=== PATIENT | male | born 1980 ===

== ENCOUNTER 2017-05-18 03:27 | Inpatient (IN) | payer MEDICAID, OTHER ==
[2017-05-18] MEDS ORDERED: HYDROmorphone 1 mg/ml ISec IVP STA ×2 (03:52→04:49)
--- NOTE | 2017-05-18 03:52 | ED PDOC ---
Arrival/HPI - General Chief Complaint: Abdominal Pain Time Seen by Provider: 05/18/17 03:39 Historian: Patient - History of Present Illness Narrative History of Present Illness (Text): 05/18/17 03:51 Nabeel Pollack is a 36 year old male, whose past medical history includes pancreatitis, who presents to the emergency department complaining of abdominal pain. Patient reports he has been experiencing epigastric pain since earlier tonight after eating at a [employer] buffet. Patient states pain is consistent with previous episodes of pancreatitis. Patient denies any fever, chills, chest pain, shortness of breath, nausea, vomiting, diarrhea, urinary symptoms, back pain, neck pain, headache, dizziness, or any other complaints. Time/Duration: Other (tonight) Symptom Onset: Gradual Symptom Course: Unchanged Activities at Onset: Eating Context: Home Past Medical History - Provider Review Nursing Documentation Reviewed: Yes - Travel History If Yes, travel location?: [facility] - Infectious Disease Hx of Infectious Diseases: None - Gastrointestinal Hx Pancreatitis: Yes - Psychiatric Hx Substance Use: No Family/Social History - Physician Review Nursing Documentation Reviewed: Yes Family/Social History: Unknown Family HX Smoking Status: Never Smoked Hx Alcohol Use: No Hx Substance Use: No Allergies/Home Meds Allergies/Adverse Reactions: Allergies aspirin Allergy (Verified 05/18/17 03:48) SWELLING Home Medications: Home Meds Medication Instructions Recorded Confirmed No Known Home Med 05/18/17 05/18/17 Review of Systems - Physician Review All systems were reviewed & negative as marked: Yes - Review of Systems Constitutional: Normal. absent: Fevers Eyes: Normal ENT: Normal Respiratory: Normal. absent: SOB, Cough Cardiovascular: Normal. absent: Chest Pain Gastrointestinal: Abdominal Pain. absent: Diarrhea, Vomiting Genitourinary Male: Normal. absent: Dysuria, Frequency, Hematuria, Urinary Output Changes Musculoskeletal: Normal. absent: Back Pain Skin: Normal. absent: Rash Neurological: Normal. absent: Headache, Dizziness Endocrine: Normal Hemo/Lymphatic: Normal Psychiatric: Normal Physical Exam Vital Signs Reviewed: Yes Vital Signs Temp Pulse Resp Pulse Ox 05/18/17 03:46 97.8 F 72 16 100 Temperature: Afebrile Blood Pressure: Normal Pulse: Regular Respiratory Rate: Normal Appearance: Positive for: Well-Appearing, Non-Toxic, Comfortable Pain Distress: None Mental Status: Positive for: Alert and Oriented X 3 - Systems Exam Head: Present: Atraumatic, Normocephalic Pupils: Present: PERRL Extroacular Muscles: Present: EOMI Conjunctiva: Present: Normal Mouth: Present: Moist Mucous Membranes Neck: Present: Normal Range of Motion Respiratory/Chest: Present: Clear to Auscultation, Good Air Exchange. No: Respiratory Distress, Accessory Muscle Use Cardiovascular: Present: Regular Rate and Rhythm, Normal S1, S2. No: Murmurs Abdomen: Present: Tenderness (Epigastric tenderness), Normal Bowel Sounds. No: Distention, Peritoneal Signs Back: Present: Normal Inspection Upper Extremity: Present: Normal Inspection. No: Cyanosis, Edema Lower Extremity: Present: Normal Inspection. No: Edema Neurological: Present: GCS=15, CN II-XII Intact, Speech Normal Skin: Present: Warm, Dry, Normal Color. No: Rashes Psychiatric: Present: Alert, Oriented x 3, Normal Insight, Normal Concentration Medical Decision Making ED Course and Treatment: 05/18/17 03:51 Impression: 36 year old male complaining of epigastric pain. Plan: -- US Gallbladder and Pancreas -- Labs, lipase -- IV fluids -- Zofran -- Dilaudid -- Reassess and disposition Progress Notes: 05/18/17 06:24 Case discussed with house physician and associate medical director certified medication aide, who are aware and agree with plan. Pt will go to [facility] observation for biliary colic and intractable abdominal pain under the hospitalist service. 05/18/17 06:48 Reviewed sono, US Gallbladder and Pancreas shows: There is a negative sonographic Hammer's sign per photonics engineering technologist. Gallstones are present.. No pericholecystic fluid. The gallbladder wall measures 3 mm or which is the upper limits of normal. The common bile duct is dilated measuring 11 mm. The liver measures 13.5 x 12 cm and is increased in echogenicity consistent with fatty infiltration. The pancreas is suboptimally visualized. No right hydronephrosis. IMPRESSION: Cholelithiasis. There is borderline wall thickening which could be indicative of infectious/inflammatory process however there is no pericholecystic fluid or sonographic Hammer's sign, both of which would be expected in cholecystitis. Common bile duct dilation. Recommend correlation with laboratory values. HIDA could be performed to determine whether there is obstruction or alternatively MRCP may be helpful to evaluate for etiology of obstruction. - Lab Interpretations Lab Results: 05/18/17 04:00 05/18/17 04:00 Lab Results 05/18/17 04:00: WBC 10.7, RBC 5.09, Hgb 15.2, Hct 44.8, MCV 88.0, MCH 29.9, MCHC 33.9, RDW 13.3, Plt Count 208, MPV 9.7 05/18/17 04:00: Sodium 141, Potassium 3.7, Chloride 102, Carbon Dioxide 28, Anion Gap 15, BUN 16, Creatinine 0.9, Est GFR ( Amer) > 60, Est GFR (Non- Af Amer) > 60, Random Glucose 138 H, Calcium 9.0, Total Bilirubin 0.4, AST 36, ALT 75 H, Alkaline Phosphatase 47, Total Protein 7.1, Albumin 4.3, Globulin 2.8 , Albumin/Globulin Ratio 1.5, Lipase 116 I have reviewed the lab results: Yes - RAD Interpretation Radiology Orders: 05/18/17 05:07 GALLBLADDER & PANCREAS [US] Stat Training Director: Radiologist - Medication Orders Current Medication Orders: Discontinued Medications Hydromorphone HCl (Dilaudid) 1 mg IVP STAT STA Stop: 05/18/17 03:53 Last Admin: 05/18/17 04:03 Dose: 1 mg YING Pain Assessment Document 05/18/17 04:03 JOKris (Rec: 05/18/17 04:03 [id number] Pain Reassessment Is this a pain reassessment? No Sleep Is patient sleeping during reassessment? No Presence of Pain Presence of Pain Yes Pain Scale Used Pain Scale Used Numeric Location Pain Location Body Site Abdomen Description Intensity of Pain at present 10 Pain Behavior Moaning Restlessness Facial Grimacing IVP Administration Document 05/18/17 04:03 JOKris (Rec: 05/18/17 04:03 [id number] Charges for Administration # of IVP Administrations 1 Re-Assess: YING Pain Assessment Document 05/18/17 05:02 JOKris (Rec: 05/18/17 05:02 [id number] Pain Reassessment Is this a pain reassessment? Yes Sleep Is patient sleeping during reassessment? No Presence of Pain Presence of Pain Yes Pain Scale Used Pain Scale Used Numeric Description Intensity of Pain at present 7 Pain not relieved and LIP/MD was Yes notified Hydromorphone HCl (Dilaudid) 1 mg IVP STAT STA Stop: 05/18/17 04:50 Last Admin: 05/18/17 05:02 Dose: 1 mg MAR Pain Assessment Document 05/18/17 05:02 JOL (Rec: 05/18/17 05:02 JO [id number]) Pain Reassessment Is this a pain reassessment? Yes Sleep Is patient sleeping during reassessment? No Presence of Pain Presence of Pain Yes Pain Scale Used Pain Scale Used Numeric Location Upper or Lower Upper Pain Location Body Site Abdomen Description Intensity of Pain at present 7 Pain Behavior Moaning Restlessness Facial Grimacing IVP Administration Document 05/18/17 05:02 JOL (Rec: 05/18/17 05:02 [id number] Charges for Administration # of IVP Administrations 1 Sodium Chloride (Sodium Chloride 0.9%) 1,000 mls @ 999 mls/hr IV .Q1H1M STA Stop: 05/18/17 04:53 Last Admin: 05/18/17 04:02 Dose: 999 mls/hr eMAR Start Stop Document 05/18/17 04:02 JOL (Rec: 05/18/17 04:03 [id number] Intravenous Solution Start Date 05/18/17 Start Time 04:02 End Date 05/18/17 End time 05:03 Total Infusion Time 61 Ondansetron HCl (Zofran Inj) 4 mg IVP ONCE ONE Stop: 05/18/17 03:53 Last Admin: 05/18/17 04:03 Dose: 4 mg IVP Administration Document 05/18/17 04:03 JOL (Rec: 05/18/17 04:03 [id number]) Charges for Administration # of IVP Administrations 1 - Scribe Statement The provider has reviewed the documentation as recorded by the Scribberto Mayberry All medical record entries made by the Scribe were at my direction and personally dictated by me. I have reviewed the chart and agree that the record accurately reflects my personal performance of the history, physical exam, medical decision making, and the department course for this patient. I have also personally directed, reviewed, and agree with the discharge instructions and disposition. Disposition/Present on Arrival - Present on Arrival Any Indicators Present on Arrival: No History of DVT/PE: No History of Uncontrolled Diabetes: No Urinary Catheter: No History of Decub. Ulcer: No History Surgical Site Infection Following: None - Disposition Have Diagnosis and Disposition been Completed?: Yes Diagnosis: Biliary colic, Intractable abdominal pain Disposition: HOSPITALIZED Disposition Time: 06:42 Patient Plan: Observation Patient Problems: Current Active Problems Problem Status Onset Biliary colic Acute Intractable abdominal pain Acute Condition: STABLE
[2017-05-18] MEDS ORDERED: Sodium Chloride 0.9% 1,000 ML IV STA (03:53)
[2017-05-18] MEDS ORDERED: HYDROmorphone 1 mg/ml ISec ONE (03:58)
[2017-05-18 04:17] LABS: HEMATOCRIT 44.8 % (42.0-52.0); MEAN CORPUSCULAR HEMOGLOBIN 29.9 pg (25.0-35.0); MEAN CORPUSCULAR HGB CONC 33.9 g/dl (31.0-37.0); MEAN PLATELET VOLUME 9.7 fl (7.0-11.0); RED CELL DISTRIBUTION WIDTH 13.3 % (11.5-14.5); WHITE BLOOD COUNT 10.7 10^3/ul (4.5-11.0)
[2017-05-18 04:24] LABS: ALB/GLOB RATIO 1.5 (1.1-1.8); ALKALINE PHOSPHATASE 47 U/L (38-126); ALT/SGPT 75 U/L (7-56); AST/SGOT 36 U/L (17-59); BILIRUBIN,TOTAL 0.4 mg/dL (0.2-1.3); BLOOD UREA NITROGEN 16 mg/dL (7-21); CARBON DIOXIDE 28 mmol/L (21-33); CHLORIDE 102 mmol/L (98-107); GFR AFRICAN-AMERICAN > 60; GLUCOSE,RANDOM 138 mg/dL (70-110); LIPASE 116 U/L (23-300); POTASSIUM 3.7 mmol/L (3.6-5.0); SODIUM 141 mmol/L (132-148); TOTAL PROTEIN 7.1 g/dL (5.8-8.3)
--- NOTE | 2017-05-18 06:43 | US ---
EXAM: US Abdomen Limited, Right Upper Quadrant EXAM DATE/TIME: 05/18/2017 5:07 AM CLINICAL HISTORY: 36 years old, male; Pain; Abdominal pain; Epigastric TECHNIQUE: Real-time ultrasound of the right upper quadrant with image documentation. COMPARISON: No relevant prior studies available. FINDINGS: There is a negative sonographic Hammer's sign per ultrasound technologist sonographer. Gallstones are present.. No pericholecystic fluid. The gallbladder wall measures 3 mm or which is the upper limits of normal. The common bile duct is dilated measuring 11 mm. The liver measures 13.5 x 12 cm and is increased in echogenicity consistent with fatty infiltration. The pancreas is suboptimally visualized. No right hydronephrosis. IMPRESSION: Cholelithiasis. There is borderline wall thickening which could be indicative of infectious/inflammatory process however there is no pericholecystic fluid or sonographic Hammer's sign, both of which would be expected in cholecystitis. Common bile duct dilation. Recommend correlation with laboratory values. HIDA could be performed to determine whether there is obstruction or alternatively MRCP may be helpful to evaluate for etiology of obstruction.
[2017-05-18] MEDS ORDERED: Lactated Ringer's 1,000 ML IV SCH (07:30)
--- NOTE | 2017-05-18 08:02 | CP.PCM.HP ---
<Alek Herman - Last Filed: 05/18/17 07:41> History of Present Illness - History of Present Illness History of Present Illness: 36 y/o wallisian speaking male with PMH of chronic pancreatitis presents to the hospital with abdominal pain for the past 8 hours. Patient states he went to a [employer] buffet last night and his symptoms developed afterwards. Pt states his pain is epigastric and nonradiating. Pain is described as a gas like pain. Pt gets these pains every couple of months. 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 Pt states he takes pancreatic enzymes for his chronic pancreatitis, but he ran out of his medication 1 week ago. Pt denies CP, SOB, nausea, vomiting, diarrhea, fever, chills, dysuria, changes in vision, numbness, tingling. PMH: Chronic pancreatitis PSH: Appendectomy FMH: DM Social Hx: Denies alcohol, tobacco, illicit drug use. 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 Allergies: ASA Medication: Pancreatic enzymes Present on Admission - Present on Admission Any Indicators Present on Admission: No Review of Systems - Review of Systems Review of Systems: 12 point ROS as per HPI, otherwise negative Past Patient History - Infectious Disease Hx of Infectious Diseases: None - Past Social History Smoking Status: Never Smoked - GASTROINTESTINAL Hx Pancreatitis: Yes - PSYCHIATRIC Hx Substance Use: No Meds Allergies/Adverse Reactions: Allergies Allergy/AdvReac Type Severity Reaction Status Date / Time aspirin Allergy SWELLING Verified 05/18/17 03:48 Physical Exam - Constitutional Appears: Non-toxic, No Acute Distress - Head Exam Head Exam: ATRAUMATIC, NORMAL INSPECTION, NORMOCEPHALIC - ENT Exam ENT Exam: Mucous Membranes Moist, Normal Exam - Respiratory Exam Respiratory Exam: Clear to Auscultation Bilateral, NORMAL BREATHING PATTERN. absent: Rales, Rhonchi, Wheezes - Cardiovascular Exam Cardiovascular Exam: RRR, +S1, +S2 - GI/Abdominal Exam GI & Abdominal Exam: Normal Bowel Sounds, Soft, Tenderness (Mild in epigastric region). absent: Distended, Guarding - Extremities Exam Extremities exam: Positive for: normal inspection. Negative for: calf tenderness, pedal edema - Neurological Exam Neurological exam: Alert, CN II-XII Intact, Oriented x3 - Psychiatric Exam Psychiatric exam: Normal Affect, Normal Mood - Skin Skin Exam: Intact, Normal Color, Warm Results - Vital Signs Recent Vital Signs: Last Vital Signs Temp 97.8 F 05/18/17 03:46 Pulse 72 05/18/17 07:32 Resp 17 05/18/17 07:32 BP 130/72 05/18/17 07:32 Pulse Ox 98 05/18/17 07:32 - Labs Result Diagrams: 05/18/17 04:00 05/18/17 04:00 Assessment & Plan - Assessment and Plan (Free Text) Plan: 36 y/o M with PMH of chronic pancreatitis presents with abdominal pain likely secondary to choledocolithiasis. Pt received an abdominal US in ED which showed a CBD of 11 mm and cholelithiasis with borderline gallbladder wall thickening. Pt will undergo MRCP and have GI and Surgery consulted. Pt will be kept NPO and monitored closely. 1. Abdominal pain Abdominal US showing 11 mm CBD dilatation MRCP ordered NPO LR @ 100 cc/hr Tylenol for pain Lipid panel ordered Troponin ordered Consider pancreatic CT to rule out pancreatic divisum Surgery, Dr. Fine consulted GI, Dr. Bobo consulted 2. PPX Protonix SCDs Batsheva, PGY-2 <Aman Bateman - Last Filed: 05/18/17 15:13> Results - Vital Signs Recent Vital Signs: Last Vital Signs Temp 98.3 F 05/18/17 10:44 Pulse 72 05/18/17 10:44 Resp 20 05/18/17 10:44 BP 115/76 05/18/17 10:44 Pulse Ox 98 05/18/17 07:56 - Labs Result Diagrams: 05/18/17 04:00 05/18/17 04:00 Attending/Attestation - Attestation I have personally seen and examined this patient.: Yes I have fully participated in the care of the patient.: Yes I have reviewed all pertinent clinical information: Yes Notes (Text): 05/18/17 15:11 attending note; Patient seen and examined with resident. Patient is a 36-year-old male admitted with abdominal pain. Patient with a past medical history of recurrent pancreatitis and on pancreatic enzymes for treatment. nothing by mouth. IV fluids. IV morphine for pain control. Abdominal ultrasound showed dilated common bile duct and cholelithiasis. MRCP ordered. GI evaluation requested. surgery evaluation requested. MRCP showed normal CBD size without any stones. Acute cholecystitis suspected. Started on IV anti-biotics. Follow-up with surgery and GI closely. 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
[2017-05-18 08:50] LABS: CHOLESTEROL 161 mg/dL (130-200)
--- NOTE | 2017-05-18 09:49 | CP.PCM.CON ---
History of Present Illness - History of Present Illness History of Present Illness: General Surgery: Dr Fine Pt is a 36M with known history of chronic pancreatitis. Per the pt, he is from [facility] [place] and has had multiple work-ups for pancreatitis w/ epigastric pain, including an EGD. The only information he has was able to provide is that he has known gallstones, and takes a medicine he does not remember the name of every so often for his abdominal pain. Currently, pt reports his pain is epigastric. 5/10. Significantly improved since admission. He had nausea on admission but that has resolved now. Denies any episodes of emesis, fevers or chills. Abd US showed pt multiple stones and a dilated CBD. MRCP shows there is no choledocholithiasis and no CBD dilatation. Review of Systems - Review of Systems All systems: reviewed and no additional remarkable complaints except (as per hpi ) Past Patient History - Infectious Disease Hx of Infectious Diseases: None - Past Social History Smoking Status: Never Smoked - GASTROINTESTINAL Hx Pancreatitis: Yes - PSYCHIATRIC Hx Substance Use: No Meds Allergies/Adverse Reactions: Allergies Allergy/AdvReac Type Severity Reaction Status Date / Time aspirin Allergy SWELLING Verified 05/18/17 03:48 - Medications Medications: Current Medications Acetaminophen (Tylenol 325mg Tab) 650 mg PO Q4 PRN PRN Reason: Fever >100.4 F Lactated Ringer's (Lactated Ringer's) 1,000 mls @ 100 mls/hr IV .Q10H [facility] Last Admin: 05/18/17 07:40 Dose: 100 mls/hr Morphine Sulfate (Morphine) 2 mg IVP Q4H PRN PRN Reason: Pain, moderate (4-7) Ondansetron HCl (Zofran Inj) 4 mg IVP Q4H PRN PRN Reason: Nausea/Vomiting Pantoprazole Sodium (Protonix Ec Tab) 40 mg PO 0600 STELLA Physical Exam - Constitutional Appears: Non-toxic, No Acute Distress - Respiratory Exam Respiratory Exam: absent: Accessory Muscle Use, Respiratory Distress - Cardiovascular Exam Cardiovascular Exam: REGULAR RHYTHM. absent: Tachycardia - GI/Abdominal Exam GI & Abdominal Exam: Soft, Tenderness (epigastric). absent: Distended, Firm, Guarding, Hernia - Neurological Exam Neurological exam: Alert, Oriented x3 - Psychiatric Exam Psychiatric exam: Normal Affect, Normal Mood Results - Vital Signs Recent Vital Signs: Last Vital Signs Temp 98.2 F 05/18/17 07:56 Pulse 72 05/18/17 07:56 Resp 17 05/18/17 07:56 BP 130/72 05/18/17 07:56 Pulse Ox 98 05/18/17 07:56 - Labs Result Diagrams: 05/18/17 04:00 05/18/17 04:00 Assessment & Plan - Assessment and Plan (Free Text) Assessment: 36M with chronic pancreatitis 2/2 cholecystitis Plan: NPO IV fluids IV abx anti-emetics and pain control PRN pt will need lap cholecystectomy tentatively Friday pending OR schedule d/w Dr Babatunde Mcneil, PGY3
[2017-05-18] MEDS: Morphine 4 mg/ml ISec IVP PRN (10:29)
--- NOTE | 2017-05-18 11:18 | MRI ---
PROCEDURE: Magnetic Resonance Cholangiopancreatography HISTORY: Gallstones COMPARISON: None available. TECHNIQUE: Multiplanar, multisequence MR images of the abdomen were obtained, including heavily T2 weighted MRCP images of the biliary system. Rotating maximum intensity projection images of the biliary system were generated. FINDINGS: MRCP: The common bile duct is of a normal caliber. No evidence of choledocholithiasis. No intrahepatic biliary ductal dilatation. LIVER: Unremarkable. GALLBLADDER: Several gallstones are seen. There is a 14 mm stone in the neck of the gallbladder. There is minimal pericholecystic fluid. Findings are suspicious for cholecystitis. SPLEEN: Unremarkable. PANCREAS: Unremarkable. ADRENALS: Unremarkable. KIDNEYS: Unremarkable. AORTA: No aneurysm. ASCITES: None. OTHER FINDINGS: None. IMPRESSION: Several gallstones are seen. There is a 14 mm stone in the neck of the gallbladder. There is minimal pericholecystic fluid. Findings are suspicious for cholecystitis. The common duct is normal in caliber with no common duct stones
[2017-05-18 12:56] VITALS: BMI 22.6
[2017-05-18] MEDS: metroNIDAZOLE IV 500 mg/100 ml 500 MG/100 ML BAG IVPB SCH ×2 (14:52→21:35)
[2017-05-18] MEDS: cefTRIAXone 1 gm 1 GM/100 ML BAG IVPB SCH (15:39)
[2017-05-18] MEDS: Sodium Chloride 0.9% 1,000 ML IV SCH (15:40)
[2017-05-18] MEDS: Insulin Reg-LOW-Coverage SC SCH (19:15)
[2017-05-19] MEDS ORDERED: Dextrose 50% SYRINGE Inj (50 ml) IVP ONE
[2017-05-19] MEDS: Morphine 4 mg/ml ISec IVP PRN (00:52)
[2017-05-19] MEDS: metroNIDAZOLE IV 500 mg/100 ml 500 MG/100 ML BAG IVPB SCH ×2 (05:42→23:11)
[2017-05-19] MEDS ORDERED: Pantoprazole 40 mg EC Tab PO SCH (06:00)
[2017-05-19 07:17] LABS: BASO # 0.01 K/mm3 (0.0-2.0); BASO % 0.1 % (0.0-3.0); EOS # 0.2 (0.0-0.7); EOS % 1.3 % (1.5-5.0); GRAN # 8.82 (1.4-6.5); GRAN % 69.7 % (50.0-68.0); HEMATOCRIT 46.6 % (42.0-52.0); LYMPH # 2.5 (1.2-3.4); LYMPH % 19.7 % (22.0-35.0); MEAN CELL VOLUME 88.9 fl (80.0-105.0); MEAN CORPUSCULAR HGB CONC 33.7 g/dl (31.0-37.0); MEAN PLATELET VOLUME 9.5 fl (7.0-11.0); MONO # 1.2 (0.1-0.6); MONO % 9.2 % (1.0-6.0); RED CELL DISTRIBUTION WIDTH 13.6 % (11.5-14.5); WHITE BLOOD COUNT 12.7 10^3/ul (4.5-11.0)
[2017-05-19 07:29] LABS: INR 1.07 (0.93-1.08)
[2017-05-19 07:50] LABS: ALB/GLOB RATIO 1.4 (1.1-1.8); ALKALINE PHOSPHATASE 57 U/L (38-126); ALT/SGPT 61 U/L (7-56); AST/SGOT 25 U/L (17-59); BILIRUBIN,TOTAL 0.7 mg/dL (0.2-1.3); BLOOD UREA NITROGEN 11 mg/dL (7-21); CARBON DIOXIDE 32 mmol/L (21-33); CHLORIDE 103 mmol/L (95-110); GFR AFRICAN-AMERICAN > 60; GLUCOSE,RANDOM 106 mg/dL (70-110); POTASSIUM 4.1 mmol/L (3.6-5.0); SODIUM 141 mmol/L (132-148)
[2017-05-19] MEDS: Insulin Reg-LOW-Coverage SC SCH ×3 (08:08→18:21)
--- NOTE | 2017-05-19 09:50 | CON ---
DATE: 05/18/2017 This patient was seen and evaluated earlier today. REASON FOR CONSULTATION: Abdominal pain, gallstones. HISTORY OF PRESENT ILLNESS: This 36-year-old patient who has come from [facility] about 2 weeks ago, presented to the emergency room complaining of severe abdominal pain. He said that he had some [place] in the earlier previous night, and then he started to have the pain the following day. He gave history of pancreatitis twice and he was hospitalized in [facility]. He was told to have gallstones at that time and they were not sure. They recommended surgery, patient declined at that time. The pain was mainly in the epigastric area and also in the right upper quadrant area. OTHER PAST MEDICAL HISTORY: As above. PAST SURGICAL HISTORY: Significant for appendicectomy. FAMILY HISTORY: Positive for diabetes mellitus. SOCIAL HISTORY: Denies smoking. No alcohol. ALLERGIES: ALLERGIC TO ASPIRIN. REVIEW OF SYSTEMS: Positive as above. PHYSICAL EXAMINATION GENERAL: On examination, the patient is lying on the bed, not in acute distress. VITAL SIGNS: Temperature 98.3, pulse 73, blood pressure 115/76, respirations 20, O2 saturations 99. HEENT: Atraumatic. Anicteric. NECK: Supple. HEART: S1 and S2 heard. LUNGS: Bilateral air entry present. ABDOMEN: Soft. There was mild tenderness in the epigastric area. There is no rebound or guarding. EXTREMITIES: No edema. No cyanosis. NEUROLOGIC: Alert and oriented, moves all the extremities. LABORATORY DATA: Hemoglobin 15.2, hematocrit 44.8, WBC 10.7, platelets 208. Chemistry: ALT 75, otherwise unremarkable. Glucose is mildly elevated at 138. IMPRESSION: This is a 36-year-old patient with a known history of gallstones, history of pancreatitis in the past, admitted with worsening of the abdominal pain after he ate some [employer] food. The patient had an ultrasound scan of the abdomen done, which was reviewed. It shows multiple gallstones and the common bile duct dilated up to 11 mm. The patient subsequently had an MRCP done, which was also reviewed by me, and it shows a nondilated common bile duct. It is smooth, narrowing with no filling defects, multiple gallstones present. 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 His LFTs are mildly elevated. Otherwise, alkaline phosphatase and total bilirubin have been normal. The patient's amylase level is also normal. RECOMMENDATIONS: This patient has recurrent episodes of biliary colic and episodes of pancreatitis in the past. Presently, the MRCP shows no stones. LFTs has been normal except for mildly elevated ALT. The patient is scheduled to go for OR tomorrow. We would recommend intraoperative cholangiogram. The patient has mildly elevated ALT. We would request baseline hepatitis profile and we will follow up the LFTs. Thank you very much for allowing me to participate in the care of this patient. Jovanna Bobo MD
[2017-05-19] MEDS: cefTRIAXone 1 gm 1 GM/100 ML BAG IVPB SCH (10:28)
[2017-05-19] MEDS: Sodium Chloride 0.9% 1,000 ML IV SCH ×2 (10:29→23:11)
[2017-05-19] MEDS ORDERED: Lactated Ringer's 1,000 ML IV SCH ×2 (12:15→14:30)
[2017-05-19] MEDS ORDERED: Morphine 2 mg/ml ISec IVP PRN (12:15)
[2017-05-19] MEDS ORDERED: Propofol 10 mg/ml Inj (20 ML) ONE (12:36)
[2017-05-19] MEDS ORDERED: Rocuronium 10 mg/ml (5 ml) ONE (12:37)
[2017-05-19] MEDS ORDERED: Midazolam 2 MG/2 ML VIAL ONE (12:37)
--- NOTE | 2017-05-19 13:16 | CP.PCM.PN ---
<Mike Currie - Last Filed: 05/19/17 13:26> Subjective - Date & Time of Evaluation Date of Evaluation: 05/19/17 Time of Evaluation: 08:13 - Subjective Subjective: patient was seen and examined at bedside. states that the abdominal pain has improved. denies n/v/d, fevers/chills, chest pain, shortness of breath, or any other symptoms. pt states he has history of surgical appendectomy and hernia repair. Objective - Vital Signs/Intake and Output Vital Signs (last 24 hours): Temp Pulse Resp BP Pulse Ox 99.6 F 76 18 139/76 98 05/19/17 12:30 05/19/17 12:30 05/19/17 12:30 05/19/17 12:30 05/19/17 12:30 Intake and Output: 05/19/17 05/19/17 06:59 18:59 Intake Total 0 Output Total 625 Balance -625 - Medications Medications: Current Medications Acetaminophen (Tylenol 325mg Tab) 650 mg PO Q4 PRN PRN Reason: Fever >100.4 F Last Admin: 05/18/17 13:30 Dose: 650 mg Metronidazole (Flagyl) 500 mg in 100 mls @ 100 mls/hr IVPB Q8 [facility] PRN Reason: Protocol Last Admin: 05/19/17 05:42 Dose: 100 mls/hr Ceftriaxone Sodium (Rocephin 1 Gram Ivpb) 1 gm in 100 mls @ 100 mls/hr IVPB DAILY [facility] PRN Reason: Protocol Last Admin: 05/19/17 10:28 Dose: 100 mls/hr Sodium Chloride (Sodium Chloride 0.9%) 1,000 mls @ 100 mls/hr IV .Q10H [facility] Last Admin: 05/19/17 10:29 Dose: 100 mls/hr Lactated Ringer's (Lactated Ringer's) 1,000 mls @ 75 mls/hr IV .[id number] [facility] Stop: 05/19/17 14:16 Insulin Human Regular (Humulin R Low) 0 units SC AC [facility] PRN Reason: Protocol Last Admin: 05/19/17 12:17 Dose: Not Given Morphine Sulfate (Morphine) 2 mg IVP Q4H PRN PRN Reason: Pain, moderate (4-7) Last Admin: 05/19/17 00:52 Dose: 2 mg Morphine Sulfate (Morphine) 2 mg IVP Q15M PRN PRN Reason: Pain, moderate (4-7) Ondansetron HCl (Zofran Inj) 4 mg IVP Q4H PRN PRN Reason: Nausea/Vomiting Ondansetron HCl (Zofran Inj) 4 mg IVP ONCE PRN PRN Reason: Nausea/Vomiting Pantoprazole Sodium (Protonix Ec Tab) 40 mg PO 0600 [facility] Last Admin: 05/19/17 05:24 Dose: Not Given - Labs Labs: 05/19/17 07:07 05/19/17 07:07 PT 11.8 SECONDS (9.4-12.5) 05/19/17 07:07 INR 1.07 (0.93-1.08) 05/19/17 07:07 APTT 32.0 Seconds (25.1-36.5) 05/19/17 07:07 - Constitutional Appears: Well, Non-toxic, No Acute Distress - Head Exam Head Exam: ATRAUMATIC, NORMAL INSPECTION, NORMOCEPHALIC - Eye Exam Eye Exam: EOMI, Normal appearance, PERRL - ENT Exam ENT Exam: Mucous Membranes Moist - Neck Exam Neck Exam: Full ROM - Respiratory Exam Respiratory Exam: Clear to Ausculation Bilateral, NORMAL BREATHING PATTERN. absent: Chest Wall Tenderness - Cardiovascular Exam Cardiovascular Exam: RRR. absent: Gallop, Rubs, Murmur - GI/Abdominal Exam GI & Abdominal Exam: Soft, Tenderness (epigastric and RUQ), Normal Bowel Sounds. absent: Distended, Guarding - Extremities Exam Extremities Exam: Full ROM, Normal Inspection - Back Exam Back Exam: NORMAL INSPECTION - Neurological Exam Neurological Exam: Alert, Awake, Oriented x3 - Psychiatric Exam Psychiatric exam: Normal Affect, Normal Mood - Skin Skin Exam: Normal Color, Warm Additional comments: scar RLQ from prior surgery Assessment and Plan - Assessment and Plan (Free Text) Assessment: 36 y/o M with PMH of chronic pancreatitis presents with abdominal pain likely secondary to choledocolithiasis. Pt received an abdominal US in ED which showed a CBD of 11 mm and cholelithiasis with borderline gallbladder wall thickening. MRCP was negative for stones or dilation. Pt to go to OR today Plan: 1. Abdominal pain likely 2/2 choledecolithiasis - OR today for lap david - NPO - LR @ 75 cc/hr - morphine PRN for pain - zofran - Lipids wnl - Surgery, Dr. Fine consulted - GI, Dr. Bobo consulted 2. Transaminitis - hepatitis panel ordered, per GI recs PPX: Protonix/SCDs Diet: NPO Patient was seen, examined, and discussed with attending, Dr. Martha Currie PGY1 <Layla Thomas - Last Filed: 05/19/17 18:07> Objective - Vital Signs/Intake and Output Vital Signs (last 24 hours): Temp Pulse Resp BP Pulse Ox 99.5 F 81 18 112/72 98 05/19/17 16:00 05/19/17 16:00 05/19/17 16:00 05/19/17 16:00 05/19/17 16:00 Intake and Output: 05/19/17 05/19/17 06:59 18:59 Intake Total 0 Output Total 625 Balance -625 - Medications Medications: Current Medications Acetaminophen (Tylenol 325mg Tab) 650 mg PO Q4 PRN PRN Reason: Fever >100.4 F Last Admin: 05/18/17 13:30 Dose: 650 mg Hydromorphone HCl (Dilaudid) 0.5 mg IVP Q4H PRN PRN Reason: Pain, severe (8-10) Metronidazole (Flagyl) 500 mg in 100 mls @ 100 mls/hr IVPB Q8 [facility] PRN Reason: Protocol Last Admin: 05/19/17 05:42 Dose: 100 mls/hr Ceftriaxone Sodium (Rocephin 1 Gram Ivpb) 1 gm in 100 mls @ 100 mls/hr IVPB DAILY [facility] PRN Reason: Protocol Last Admin: 05/19/17 10:28 Dose: 100 mls/hr Sodium Chloride (Sodium Chloride 0.9%) 1,000 mls @ 100 mls/hr IV .Q10H [facility] Last Admin: 05/19/17 10:29 Dose: 100 mls/hr Insulin Human Regular (Humulin R Low) 0 units SC AC [facility] PRN Reason: Protocol Last Admin: 05/19/17 12:17 Dose: Not Given Morphine Sulfate (Morphine) 2 mg IVP Q4H PRN PRN Reason: Pain, moderate (4-7) Last Admin: 05/19/17 00:52 Dose: 2 mg Ondansetron HCl (Zofran Inj) 4 mg IVP Q4H PRN PRN Reason: Nausea/Vomiting Ondansetron HCl (Zofran Inj) 4 mg IVP ONCE PRN PRN Reason: Nausea/Vomiting Oxycodone/Acetaminophen (Percocet 5/325 Mg Tab) 2 tab PO Q4H PRN PRN Reason: Pain, moderate (4-7) Stop: 05/22/17 14:14 Pantoprazole Sodium (Protonix Ec Tab) 40 mg PO 0600 [facility] Last Admin: 05/19/17 05:24 Dose: Not Given - Labs Labs: 05/19/17 07:07 05/19/17 07:07 PT 11.8 SECONDS (9.4-12.5) 05/19/17 07:07 INR 1.07 (0.93-1.08) 05/19/17 07:07 APTT 32.0 Seconds (25.1-36.5) 05/19/17 07:07 Attending/Attestation - Attestation I have personally seen and examined this patient.: Yes I have fully participated in the care of the patient.: Yes I have reviewed all pertinent clinical information, including history, physical exam and plan: Yes Notes (Text): I have seen and examined the patient at bedside. Agree with the above note with the following additions/ exceptions: Briefly this is 36 year old male with history of chronic pancreatitis on pancreatic enzymes came for evaluation of abdominal pain secondary to chronic pancreatitis due to acute on chronic cholecystitis. Abdominal ultrasound showed dilated common bile duct and cholelithiasis. MRCP showed normal CBD size without any stones. He is NPO for surgery today. Continue IVF, analgesics, antiemetics and antibiotics. Upon discharge patient will follow up with PMD of choice. Dr Layla Thomas
[2017-05-19] MEDS ORDERED: Glycopyrrolate 0.2 mg/ml (2ml vial) ONE (13:36)
[2017-05-19] MEDS ORDERED: Neostigmine Methylsulfate 3mg/3ml Syringe IV ONE (13:38)
[2017-05-19] MEDS ORDERED: Oxycodone/Acetaminophen 5/325 mg Tab PO PRN (14:13)
--- NOTE | 2017-05-19 14:14 | PCM.SURG1 ---
Surgeon's Initial Post Op Note - Surgeon's Notes Surgeon: Dr. Fine Mun[employer] Handler Supervisor: Dr. Handy PGy3; Dr. Villasenor PGY2; Leticia Romero Type of Anesthesia: General Endo Anesthesia Administered By: alexander Pre-Operative Diagnosis: Chronic Cholecystitis Operative Findings: Acute on Chronic cholecystitis Post-Operative Diagnosis: Acute on Chronic Cholecystitis Operation Performed: Laparoscopic Cholecystectomy Specimen/Specimens Removed: Gallbladder Estimated Blood Loss: EBL {In ML}: 10 Blood Products Given: N/A Drains Used: No Drains Post-Op Condition: Good Date of Surgery/Procedure: 05/19/17 Time of Surgery/Procedure: 14:13
--- NOTE | 2017-05-19 16:52 | CP.PCM.PN ---
<Rosio Greer - Last Filed: 05/19/17 16:46> Subjective - Date & Time of Evaluation Date of Evaluation: 05/19/17 Time of Evaluation: 11:20 - Subjective Subjective: Seen and examined at the bedside earlier today, patient nothing by mouth awaiting to go to the OR. Patient does report abdominal pain, no nausea, vomiting, fever or chills. Sister is at the bedside. Objective - Vital Signs/Intake and Output Vital Signs (last 24 hours): Temp Pulse Resp BP Pulse Ox 98.2 F 94 H 22 129/77 97 05/19/17 15:22 05/19/17 15:22 05/19/17 15:22 05/19/17 15:22 05/19/17 15:22 Intake and Output: 05/19/17 05/19/17 06:59 18:59 Intake Total 0 Output Total 625 Balance -625 - Medications Medications: Current Medications Acetaminophen (Tylenol 325mg Tab) 650 mg PO Q4 PRN PRN Reason: Fever >100.4 F Last Admin: 05/18/17 13:30 Dose: 650 mg Hydromorphone HCl (Dilaudid) 0.5 mg IVP Q4H PRN PRN Reason: Pain, severe (8-10) Metronidazole (Flagyl) 500 mg in 100 mls @ 100 mls/hr IVPB Q8 [facility] PRN Reason: Protocol Last Admin: 05/19/17 05:42 Dose: 100 mls/hr Ceftriaxone Sodium (Rocephin 1 Gram Ivpb) 1 gm in 100 mls @ 100 mls/hr IVPB DAILY [facility] PRN Reason: Protocol Last Admin: 05/19/17 10:28 Dose: 100 mls/hr Sodium Chloride (Sodium Chloride 0.9%) 1,000 mls @ 100 mls/hr IV .Q10H [facility] Last Admin: 05/19/17 10:29 Dose: 100 mls/hr Insulin Human Regular (Humulin R Low) 0 units SC AC [facility] PRN Reason: Protocol Last Admin: 05/19/17 12:17 Dose: Not Given Morphine Sulfate (Morphine) 2 mg IVP Q4H PRN PRN Reason: Pain, moderate (4-7) Last Admin: 05/19/17 00:52 Dose: 2 mg Ondansetron HCl (Zofran Inj) 4 mg IVP Q4H PRN PRN Reason: Nausea/Vomiting Ondansetron HCl (Zofran Inj) 4 mg IVP ONCE PRN PRN Reason: Nausea/Vomiting Oxycodone/Acetaminophen (Percocet 5/325 Mg Tab) 2 tab PO Q4H PRN PRN Reason: Pain, moderate (4-7) Stop: 05/22/17 14:14 Pantoprazole Sodium (Protonix Ec Tab) 40 mg PO 0600 [facility] Last Admin: 05/19/17 05:24 Dose: Not Given - Labs Labs: 05/19/17 07:07 05/19/17 07:07 PT 11.8 SECONDS (9.4-12.5) 05/19/17 07:07 INR 1.07 (0.93-1.08) 05/19/17 07:07 APTT 32.0 Seconds (25.1-36.5) 05/19/17 07:07 - Constitutional Appears: No Acute Distress - Head Exam Head Exam: NORMOCEPHALIC - Eye Exam Eye Exam: Normal appearance. absent: Scleral icterus - ENT Exam ENT Exam: Mucous Membranes Moist - Neck Exam Neck Exam: Normal Inspection - Respiratory Exam Respiratory Exam: Clear to Ausculation Bilateral, NORMAL BREATHING PATTERN. absent: Respiratory Distress - Cardiovascular Exam Cardiovascular Exam: +S1, +S2 - GI/Abdominal Exam GI & Abdominal Exam: Soft, Tenderness (epigastric to right upper quadrant), Normal Bowel Sounds. absent: Distended, Guarding, Organomegaly, Rebound - Extremities Exam Extremities Exam: Normal Capillary Refill. absent: Calf Tenderness, Pedal Edema - Neurological Exam Neurological Exam: Alert, Awake, Oriented x3 - Skin Skin Exam: Dry, Warm Assessment and Plan - Assessment and Plan (Free Text) Assessment: Assessment: Abdominal pain likely secondary to cholelithiasis History of chronic pancreatitis Transaminitis Plan: Awaiting to go to OR for laparoscopic cholecystectomy Continue IV antibiotics, on Rocephin and Flagyl Continue PPI Continue supportive care As per surgery FU LFT Seen and discussed with Dr. Bobo. <Jovanna Bobo V - Last Filed: 05/19/17 23:47> Objective - Vital Signs/Intake and Output Vital Signs (last 24 hours): Temp Pulse Resp BP Pulse Ox 99.5 F 81 18 112/72 98 05/19/17 16:00 05/19/17 16:00 05/19/17 16:00 05/19/17 16:00 05/19/17 16:00 Intake and Output: 05/19/17 05/20/17 18:59 06:59 Intake Total 240 Output Total 500 Balance -260 - Medications Medications: Current Medications Acetaminophen (Tylenol 325mg Tab) 650 mg PO Q4 PRN PRN Reason: Fever >100.4 F Last Admin: 05/18/17 13:30 Dose: 650 mg Hydromorphone HCl (Dilaudid) 0.5 mg IVP Q4H PRN PRN Reason: Pain, severe (8-10) Last Admin: 05/19/17 18:24 Dose: 0.5 mg Metronidazole (Flagyl) 500 mg in 100 mls @ 100 mls/hr IVPB Q8 [facility] PRN Reason: Protocol Last Admin: 05/19/17 23:11 Dose: 100 mls/hr Ceftriaxone Sodium (Rocephin 1 Gram Ivpb) 1 gm in 100 mls @ 100 mls/hr IVPB DAILY [facility] PRN Reason: Protocol Last Admin: 05/19/17 10:28 Dose: 100 mls/hr Sodium Chloride (Sodium Chloride 0.9%) 1,000 mls @ 100 mls/hr IV .Q10H [facility] Last Admin: 05/19/17 23:11 Dose: 100 mls/hr Insulin Human Regular (Humulin R Low) 0 units SC AC [facility] PRN Reason: Protocol Last Admin: 05/19/17 18:21 Dose: Not Given Morphine Sulfate (Morphine) 2 mg IVP Q4H PRN PRN Reason: Pain, moderate (4-7) Last Admin: 05/19/17 00:52 Dose: 2 mg Ondansetron HCl (Zofran Inj) 4 mg IVP Q4H PRN PRN Reason: Nausea/Vomiting Ondansetron HCl (Zofran Inj) 4 mg IVP ONCE PRN PRN Reason: Nausea/Vomiting Oxycodone/Acetaminophen (Percocet 5/325 Mg Tab) 2 tab PO Q4H PRN PRN Reason: Pain, moderate (4-7) Stop: 05/22/17 14:14 Pantoprazole Sodium (Protonix Ec Tab) 40 mg PO 0600 [facility] Last Admin: 05/19/17 05:24 Dose: Not Given - Labs Labs: 05/19/17 07:07 05/19/17 07:07 PT 11.8 SECONDS (9.4-12.5) 05/19/17 07:07 INR 1.07 (0.93-1.08) 05/19/17 07:07 APTT 32.0 Seconds (25.1-36.5) 05/19/17 07:07 Attending/Attestation - Attestation I have personally seen and examined this patient.: Yes I have fully participated in the care of the patient.: Yes I have reviewed all pertinent clinical information, including history, physical exam and plan: Yes Notes (Text): This is an addendum to GI progress report dictated by Rosio Greer APN.The patient was seen and examined earlier. Medical records, lab studies, imagings were reviewed. Last 24 hours events reviewed. Agreed with the above treatment plan as outlined in Rosio Greer APN's notes the with the addition of the following Status post a possible cholecystectomy Postoperative respiratory surgery follow-up LFT 05/19/17 23:46
[2017-05-19 17:32] VITALS: RESP 18
[2017-05-19] MEDS: HYDROmorphone 0.5 mg/0.5 ml ISec IVP PRN (18:24)
[2017-05-20 08:15] LABS: BASO # 0.01 K/mm3 (0.0-2.0); BASO % 0.1 % (0.0-3.0); EOS # 0.1 (0.0-0.7); EOS % 1.1 % (1.5-5.0); GRAN # 6.96 (1.4-6.5); GRAN % 68.5 % (50.0-68.0); HEMATOCRIT 43.1 % (42.0-52.0); LYMPH # 2.3 (1.2-3.4); LYMPH % 22.8 % (22.0-35.0); MEAN CELL VOLUME 90.4 fl (80.0-105.0); MEAN CORPUSCULAR HGB CONC 33.2 g/dl (31.0-37.0); MEAN PLATELET VOLUME 9.7 fl (7.0-11.0); MONO # 0.8 (0.1-0.6); MONO % 7.5 % (1.0-6.0); RED CELL DISTRIBUTION WIDTH 13.7 % (11.5-14.5); WHITE BLOOD COUNT 10.2 10^3/ul (4.5-11.0)
[2017-05-20 08:24] LABS: ALB/GLOB RATIO 1.3 (1.1-1.8); ALKALINE PHOSPHATASE 49 U/L (38-126); ALT/SGPT 83 U/L (7-56); AST/SGOT 55 U/L (17-59); BILIRUBIN,TOTAL 0.9 mg/dL (0.2-1.3); BLOOD UREA NITROGEN 11 mg/dL (7-21); CALCIUM 8.3 mg/dL (8.4-10.5); CARBON DIOXIDE 31 mmol/L (21-33); CHLORIDE 101 mmol/L (95-110); GFR AFRICAN-AMERICAN > 60; GLUCOSE,RANDOM 74 mg/dL (70-110); POTASSIUM 3.7 mmol/L (3.6-5.0); SODIUM 140 mmol/L (132-148); TOTAL PROTEIN 6.2 g/dL (5.8-8.3)
[2017-05-20] MEDS: HYDROmorphone 0.5 mg/0.5 ml ISec IVP PRN (08:26)
--- NOTE | 2017-05-20 08:46 | CP.PCM.PN ---
Subjective - Date & Time of Evaluation Date of Evaluation: 05/20/17 Time of Evaluation: 08:39 - Subjective Subjective: PGY [address] Fine Patient seen and examined this morning at bedside. Patient states he is feeling well and in minimal pain. He states he is having some gas pain but overall, his pain is currently well controlled. Patient is passing gas. Patient states he would like to go home today. Patient is tolerating his diet well. Denies f/c, n/ v, d/c, sob, cp or headache. Objective - Vital Signs/Intake and Output Vital Signs (last 24 hours): Temp Pulse Resp BP Pulse Ox 99.5 F 81 18 112/72 98 05/19/17 16:00 05/19/17 16:00 05/19/17 16:00 05/19/17 16:00 05/19/17 16:00 Intake and Output: 05/20/17 05/20/17 06:59 18:59 Intake Total 240 Output Total 500 Balance -260 - Medications Medications: Current Medications Acetaminophen (Tylenol 325mg Tab) 650 mg PO Q4 PRN PRN Reason: Fever >100.4 F Last Admin: 05/18/17 13:30 Dose: 650 mg Hydromorphone HCl (Dilaudid) 0.5 mg IVP Q4H PRN PRN Reason: Pain, severe (8-10) Last Admin: 05/20/17 08:26 Dose: 0.5 mg Metronidazole (Flagyl) 500 mg in 100 mls @ 100 mls/hr IVPB Q8 [facility] PRN Reason: Protocol Last Admin: 05/19/17 23:11 Dose: 100 mls/hr Ceftriaxone Sodium (Rocephin 1 Gram Ivpb) 1 gm in 100 mls @ 100 mls/hr IVPB DAILY [facility] PRN Reason: Protocol Last Admin: 05/19/17 10:28 Dose: 100 mls/hr Sodium Chloride (Sodium Chloride 0.9%) 1,000 mls @ 100 mls/hr IV .Q10H [facility] Last Admin: 05/19/17 23:11 Dose: 100 mls/hr Insulin Human Regular (Humulin R Low) 0 units SC AC [facility] PRN Reason: Protocol Last Admin: 05/19/17 18:21 Dose: Not Given Morphine Sulfate (Morphine) 2 mg IVP Q4H PRN PRN Reason: Pain, moderate (4-7) Last Admin: 05/19/17 00:52 Dose: 2 mg Ondansetron HCl (Zofran Inj) 4 mg IVP Q4H PRN PRN Reason: Nausea/Vomiting Ondansetron HCl (Zofran Inj) 4 mg IVP ONCE PRN PRN Reason: Nausea/Vomiting Oxycodone/Acetaminophen (Percocet 5/325 Mg Tab) 2 tab PO Q4H PRN PRN Reason: Pain, moderate (4-7) Stop: 05/22/17 14:14 Pantoprazole Sodium (Protonix Ec Tab) 40 mg PO 0600 [facility] Last Admin: 05/19/17 05:24 Dose: Not Given - Labs Labs: 05/20/17 05:00 05/20/17 05:00 PT 11.8 SECONDS (9.4-12.5) 05/19/17 07:07 INR 1.07 (0.93-1.08) 05/19/17 07:07 APTT 32.0 Seconds (25.1-36.5) 05/19/17 07:07 - Constitutional Appears: Non-toxic, No Acute Distress - Head Exam Head Exam: ATRAUMATIC, NORMOCEPHALIC - Eye Exam Eye Exam: EOMI, Normal appearance. absent: Scleral icterus - Respiratory Exam Respiratory Exam: NORMAL BREATHING PATTERN. absent: Accessory Muscle Use, Respiratory Distress - Cardiovascular Exam Cardiovascular Exam: REGULAR RHYTHM. absent: Bradycardia, Tachycardia - GI/Abdominal Exam GI & Abdominal Exam: Guarding, Soft, Tenderness (diffuse). absent: Distended, Firm, Rigid Additional comments: port sites closed, c/d/i - Neurological Exam Neurological Exam: Alert, Awake, Oriented x3 - Psychiatric Exam Psychiatric exam: Normal Affect, Normal Mood - Skin Skin Exam: Dry, Normal Color Assessment and Plan - Assessment and Plan (Free Text) Assessment: 36M with chronic pancreatitis 2/2 cholecystitis - s/p Lap Emily, POD1 Plan: - s/p lap emily - POD1 - pain control PRN - Patient is stable from surgical stand point for discharge home. - Patient was instructed to follow up with Dr. Fine in her office next week. d/w Dr. Babatunde Flores Carmenza PGY1
[2017-05-20 09:13] VITALS: BP 109/65; PULSE 75; TEMP 98; O2SAT 97
[2017-05-20] MEDS: cefTRIAXone 1 gm 1 GM/100 ML BAG IVPB SCH (10:12)
[2017-05-20] MEDS: Insulin Reg-LOW-Coverage SC SCH (11:23)
--- NOTE | 2017-05-20 11:58 | CP.PCM.DIS ---
<Hudson Dove - Last Filed: 05/20/17 11:52> Provider - Provider Date of Admission: 05/19/17 08:49 Attending physician: Layla Thomas MD Consults: General Surgery - Dr. Fine Time Spent in preparation of Discharge (in minutes): 45 Hospital Course - Lab Results Lab Results: Most Recent Lab Values WBC 10.2 10^3/ul (4.5-11.0) 05/20/17 05:00 RBC 4.77 10^6/uL (3.5-6.1) 05/20/17 05:00 Hgb 14.3 g/dL (14.0-18.0) 05/20/17 05:00 Hct 43.1 % (42.0-52.0) 05/20/17 05:00 MCV 90.4 fl (80.0-105.0) 05/20/17 05:00 MCH 30.0 pg (25.0-35.0) 05/20/17 05:00 MCHC 33.2 g/dl (31.0-37.0) 05/20/17 05:00 RDW 13.7 % (11.5-14.5) 05/20/17 05:00 Plt Count 172 10^3/uL (120.0-450.0) 05/20/17 05:00 MPV 9.7 fl (7.0-11.0) 05/20/17 05:00 Gran % 68.5 % (50.0-68.0) H 05/20/17 05:00 Lymph % (Auto) 22.8 % (22.0-35.0) 05/20/17 05:00 [place] % (Auto) 7.5 % (1.0-6.0) H 05/20/17 05:00 Eos % (Auto) 1.1 % (1.5-5.0) L 05/20/17 05:00 Baso % (Auto) 0.1 % (0.0-3.0) 05/20/17 05:00 Gran # 6.96 (1.4-6.5) H 05/20/17 05:00 Lymph # 2.3 (1.2-3.4) 05/20/17 05:00 [place] # 0.8 (0.1-0.6) H 05/20/17 05:00 Eos # 0.1 (0.0-0.7) 05/20/17 05:00 Baso # 0.01 K/mm3 (0.0-2.0) 05/20/17 05:00 PT 11.8 SECONDS (9.4-12.5) 05/19/17 07:07 INR 1.07 (0.93-1.08) 05/19/17 07:07 APTT 32.0 Seconds (25.1-36.5) 05/19/17 07:07 Sodium 140 mmol/L (132-148) 05/20/17 05:00 Potassium 3.7 mmol/L (3.6-5.0) 05/20/17 05:00 Chloride 101 mmol/L (95-110) 05/20/17 05:00 Carbon Dioxide 31 mmol/L (21-33) 05/20/17 05:00 Anion Gap 12 (10-20) 05/20/17 05:00 BUN 11 mg/dL (7-21) 05/20/17 05:00 Creatinine 0.9 mg/dL (0.8-1.5) 05/20/17 05:00 Est GFR ( Amer) > 60 05/20/17 05:00 Est GFR (Non-Af Amer) > 60 05/20/17 05:00 POC Glucose (mg/dL) 89 mg/dL (65-110) 05/19/17 21:28 Random Glucose 74 mg/dL (70-110) 05/20/17 05:00 Calcium 8.3 mg/dL (8.4-10.5) L 05/20/17 05:00 Total Bilirubin 0.9 mg/dL (0.2-1.3) 05/20/17 05:00 AST 55 U/L (17-59) 05/20/17 05:00 ALT 83 U/L (7-56) H 05/20/17 05:00 Alkaline Phosphatase 49 U/L (38-126) 05/20/17 05:00 Troponin I < 0.01 ng/mL 05/18/17 04:30 Total Protein 6.2 g/dL (5.8-8.3) 05/20/17 05:00 Albumin 3.5 g/dL (3.0-4.8) 05/20/17 05:00 Globulin 2.6 gm/dL 05/20/17 05:00 Albumin/Globulin Ratio 1.3 (1.1-1.8) 05/20/17 05:00 Triglycerides 115 mg/dL (35-160) 05/18/17 04:30 Cholesterol 161 mg/dL (130-200) 05/18/17 04:30 LDL Cholesterol Direct 94 mg/dL (0-129) 05/18/17 04:30 HDL Cholesterol 44 mg/dL (29-60) 05/18/17 04:30 Lipase 116 U/L (23-300) 05/18/17 04:00 - Hospital Course Hospital Course: 36 y/o albanian speaking male with PMH of chronic pancreatitis presents to the hospital with abdominal pain for the past 8 hours. Patient states he went to a [employer] last night and his symptoms developed afterwards. Pt states his pain is epigastric and nonradiating. Pain is described as a gas like pain. Pt gets these pains every couple of months. 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 Abd US showed pt multiple stones and a dilated CBD. MRCP shows there is no choledocholithiasis and no CBD dilatation. General Surgery was consulted, Dr. Fine, recommended NPO, IV fluids,IV abx anti-emetics and pain control PRN. Pt was scheduled for Laproscopic Cholestectomy 05/19/17. Pt tolerated procedure well. Pt is passing flatus and tolerating po intake. Pt is ambulating. Pt was educated on incentive spirometry and encouraged to practice multiple times. Pt upon dc is to fu with [facility] clinic within 1 week and with General Surgery Dr. Fine within 1 week. Discharge Exam - Head Exam Head Exam: ATRAUMATIC, NORMOCEPHALIC - Eye Exam Eye Exam: EOMI, Normal appearance, PERRL Pupil Exam: NORMAL ACCOMODATION, PERRL - ENT Exam ENT Exam: Mucous Membranes Moist - Respiratory Exam Respiratory Exam: Clear to PA & Lateral, NORMAL BREATHING PATTERN, UNREMARKABLE - Cardiovascular Exam Cardiovascular Exam: RRR, +S1, +S2 - GI/Abdominal Exam GI & Abdominal Exam: Normal Bowel Sounds, Soft. absent: Tenderness - Neurological Exam Neurological exam: Alert, CN II-XII Intact, Normal Gait, Oriented x3, Reflexes Normal - Psychiatric Exam Psychiatric exam: Normal Affect, Normal Mood - Skin Skin Exam: Dry, Intact, Normal Color, Warm Discharge Plan - Discharge Medications Prescriptions: oxyCODONE/Acetaminophen [Percocet 5/325 mg Tab] 1 tab PO Q6H PRN #12 tab PRN Reason: Pain, Severe (8-10) - Follow Up Plan Condition: STABLE Disposition: HOME/ ROUTINE Instructions: Laparoscopic Cholecystectomy (DC), Abdominal Pain (ED) Additional Instructions: 1. Follow-up with [facility] clinic 2. Follow-up with Surgery on . 3. Follow-up a healthy balanced diet, low grease/fried foods 4. Avoid smoking and alcohol 5. Return to [facility] ED if symptoms change or worsen Referrals: Jarred Fine MD [Staff Provider] - <Layla Thomas - Last Filed: 05/20/17 16:18> Provider - Provider Date of Admission: 05/19/17 08:49 Attending physician: Layla Thomas MD Hospital Course - Lab Results Lab Results: Most Recent Lab Values WBC 10.2 10^3/ul (4.5-11.0) 05/20/17 05:00 RBC 4.77 10^6/uL (3.5-6.1) 05/20/17 05:00 Hgb 14.3 g/dL (14.0-18.0) 05/20/17 05:00 Hct 43.1 % (42.0-52.0) 05/20/17 05:00 MCV 90.4 fl (80.0-105.0) 05/20/17 05:00 MCH 30.0 pg (25.0-35.0) 05/20/17 05:00 MCHC 33.2 g/dl (31.0-37.0) 05/20/17 05:00 RDW 13.7 % (11.5-14.5) 05/20/17 05:00 Plt Count 172 10^3/uL (120.0-450.0) 05/20/17 05:00 MPV 9.7 fl (7.0-11.0) 05/20/17 05:00 Gran % 68.5 % (50.0-68.0) H 05/20/17 05:00 Lymph % (Auto) 22.8 % (22.0-35.0) 05/20/17 05:00 [place] % (Auto) 7.5 % (1.0-6.0) H 05/20/17 05:00 Eos % (Auto) 1.1 % (1.5-5.0) L 05/20/17 05:00 Baso % (Auto) 0.1 % (0.0-3.0) 05/20/17 05:00 Gran # 6.96 (1.4-6.5) H 05/20/17 05:00 Lymph # 2.3 (1.2-3.4) 05/20/17 05:00 [place] # 0.8 (0.1-0.6) H 05/20/17 05:00 Eos # 0.1 (0.0-0.7) 05/20/17 05:00 Baso # 0.01 K/mm3 (0.0-2.0) 05/20/17 05:00 PT 11.8 SECONDS (9.4-12.5) 05/19/17 07:07 INR 1.07 (0.93-1.08) 05/19/17 07:07 APTT 32.0 Seconds (25.1-36.5) 05/19/17 07:07 Sodium 140 mmol/L (132-148) 05/20/17 05:00 Potassium 3.7 mmol/L (3.6-5.0) 05/20/17 05:00 Chloride 101 mmol/L (95-110) 05/20/17 05:00 Carbon Dioxide 31 mmol/L (21-33) 05/20/17 05:00 Anion Gap 12 (10-20) 05/20/17 05:00 BUN 11 mg/dL (7-21) 05/20/17 05:00 Creatinine 0.9 mg/dL (0.8-1.5) 05/20/17 05:00 Est GFR ( Amer) > 60 05/20/17 05:00 Est GFR (Non-Af Amer) > 60 05/20/17 05:00 POC Glucose (mg/dL) 89 mg/dL (65-110) 05/19/17 21:28 Random Glucose 74 mg/dL (70-110) 05/20/17 05:00 Calcium 8.3 mg/dL (8.4-10.5) L 05/20/17 05:00 Total Bilirubin 0.9 mg/dL (0.2-1.3) 05/20/17 05:00 AST 55 U/L (17-59) 05/20/17 05:00 ALT 83 U/L (7-56) H 05/20/17 05:00 Alkaline Phosphatase 49 U/L (38-126) 05/20/17 05:00 Troponin I < 0.01 ng/mL 05/18/17 04:30 Total Protein 6.2 g/dL (5.8-8.3) 05/20/17 05:00 Albumin 3.5 g/dL (3.0-4.8) 05/20/17 05:00 Globulin 2.6 gm/dL 05/20/17 05:00 Albumin/Globulin Ratio 1.3 (1.1-1.8) 05/20/17 05:00 Triglycerides 115 mg/dL (35-160) 05/18/17 04:30 Cholesterol 161 mg/dL (130-200) 05/18/17 04:30 LDL Cholesterol Direct 94 mg/dL (0-129) 05/18/17 04:30 HDL Cholesterol 44 mg/dL (29-60) 05/18/17 04:30 Lipase 116 U/L (23-300) 05/18/17 04:00 Hepatitis A IgM Ab Negative (NEGATIVE) 05/20/17 07:23 Hep Bs Antigen Negative (NEGATIVE) 05/20/17 07:23 Hep B Core IgM Ab Negative (NEGATIVE) 05/20/17 07:23 Hepatitis C Antibody Negative (NEGATIVE) 05/20/17 07:23 Attending/Attestation - Attestation I have personally seen and examined this patient.: Yes I have fully participated in the care of the patient.: Yes I have reviewed all pertinent clinical information, including history, physical exam and plan: Yes Notes (Text): I have seen and examined the patient at bedside. Agree with the above note with the following additions/ exceptions: Briefly this is 36 year old male with history of multiple episodes of acute on chronic pancreatitis on pancreatic enzymes came for evaluation of abdominal pain secondary to chronic pancreatitis due to acute on chronic cholecystitis. Abdominal ultrasound showed dilated common bile duct and cholelithiasis. MRCP showed normal CBD size without any stones. He underwent cholecystectomy yesterday which he tolerated well. He is able to eat and has been passing gas. Denies any complaints. Advised patient to use incentive spirometry. Also advised patient to follow up in [facility] clinic. Patient will follow up with Dr Fine n May 28. He is going back to on May 29. Patient reports that he does not smoke or drink alcohol. Upon discharge patient will follow up with PMD of choice. Dr Layla Thomas
--- NOTE | 2017-05-20 19:57 | CP.PCM.PN ---
Subjective - Date & Time of Evaluation Date of Evaluation: 05/20/17 Time of Evaluation: 10:10 - Subjective Subjective: Seen and examined at the bedside earlier today, the chart was reviewed. Postop day #1, status post laparoscopic cholecystectomy. Patient family at the bedside ,, patient tolerated oral intake, no BM, denies flatus or belching. He ambulated in the hallway. Denies nausea, vomiting, fever, chills, shortness of breath or chest pain. Objective - Vital Signs/Intake and Output Vital Signs (last 24 hours): Temp Pulse Resp BP Pulse Ox 98.0 F 75 18 109/65 97 05/20/17 08:00 05/20/17 08:00 05/20/17 08:00 05/20/17 08:00 05/20/17 08:00 - Labs Labs: 05/20/17 05:00 05/20/17 05:00 PT 11.8 SECONDS (9.4-12.5) 05/19/17 07:07 INR 1.07 (0.93-1.08) 05/19/17 07:07 APTT 32.0 Seconds (25.1-36.5) 05/19/17 07:07 - Constitutional Appears: No Acute Distress - Head Exam Head Exam: NORMOCEPHALIC - Eye Exam Eye Exam: Normal appearance. absent: Scleral icterus - ENT Exam ENT Exam: Mucous Membranes Moist - Neck Exam Neck Exam: Normal Inspection - Respiratory Exam Respiratory Exam: Clear to Ausculation Bilateral, NORMAL BREATHING PATTERN. absent: Respiratory Distress - Cardiovascular Exam Cardiovascular Exam: +S1, +S2 - GI/Abdominal Exam GI & Abdominal Exam: Distended, Soft, Tenderness (lap sites w/bandaid D/I), Normal Bowel Sounds. absent: Guarding, Rebound - Extremities Exam Extremities Exam: Normal Capillary Refill. absent: Calf Tenderness, Pedal Edema - Neurological Exam Neurological Exam: Alert, Awake, Oriented x3 Assessment and Plan - Assessment and Plan (Free Text) Assessment: Assessment: Status post laparoscopic cholecystectomy for chronic cholecytitis Cholelithiasis History of chronic pancreatitis Transaminitis Plan: diet as per anthony, discuss w/ family/pt lowfat diet on Rocephin and Flagyl Continue PPI As per surgery FU LFT Seen and discussed with Dr. Bobo.
--- NOTE | 2017-05-21 11:42 | OP ---
PROCEDURE DATE: 05/19/2017 PREOPERATIVE DIAGNOSIS: Acute on chronic cholecystitis. POSTOPERATIVE DIAGNOSIS: Acute on chronic cholecystitis. PROCEDURE: Laparoscopic cholecystectomy. SURGEON: Dr. Fine. TANK DRIVER: Dr. Villasenor and Dr. Handy. TYPE OF ANESTHESIA: General. ANESTHESIA ADMINISTERED BY: Dr. Thomas. DESCRIPTION OF OPERATION: With the patient in supine position under adequate general anesthesia, the abdomen was prepped and draped in the usual sterile manner. Varus needle puncture was performed in the umbilicus with insufflation to 15 cm water pressure of CO2 and a 10 mm laparoscopic trocar was inserted via an infraumbilical incision. Under direct vision, additional trocars were inserted in the epigastrium and right costal margin. The gallbladder was visualized. It was tensely distended and was aspirated of 30 mL of dark bile. The gallbladder fundus was then grasped and elevated. Omental adhesions were cleared from the peritoneal surface allowing visualization of the infundibulum. Infundibulum was grasped and retracted laterally and the cystic duct was identified with further dissection of inflammatory tissue overlay. The cystic duct was cleared down towards the junction with the common bile duct and visualized anteriorly and posteriorly close to the gallbladder. The cystic duct was then triply clipped and divided. The cystic artery was similarly identified and dissected and the cystic artery was triply clipped and divided. The gallbladder was dissected free of the liver bed, which was edematous consistent with acute cholecystitis. The gallbladder bed was inspected for hemostasis and the dissection was completed. The gallbladder was placed in a specimen retrieval bag and removed via the umbilical port site. The right upper quadrant was irrigated and suctioned. Pneumoperitoneum was released and trocars removed. The umbilical port site was closed with [id number] fascial suture of 0 Vicryl. All incisions were closed with 4-0 Monocryl subcuticular sutures and Steri-Strips. Dry sterile dressings were applied. The patient tolerated the procedure well and transferred to recovery room in stable condition. Estimated blood loss for the procedure was 20 mL. Jarred iFne MD
== END 2017-05-20 14:09 | disposition home or self-care (01) | DRG 418 ==
LOC: ED 03:27 → ERH 06:39 → 5RSO 08:44 → OBSVTOIN 05-19 08:49
PROVIDERS: ADMIT Hospitalist; ATTEND Hospitalist
PROC: 0FT44ZZ Resection of Gallbladder, Percutaneous Endoscopic Approach (ICD-10-PCS; principal; 2017-05-19 12:30)
DX: K80.12 Calculus of gallbladder with acute and chronic cholecystitis without obstruction (principal); K86.1 Other chronic pancreatitis; K83.8 Other specified diseases of biliary tract; Z88.6 Allergy status to analgesic agent; Z83.3 Family history of diabetes mellitus